=== PATIENT | male | born 1995 | race Asian ===

== ENCOUNTER 2024-09-26 21:57 | Emergency (ER) | payer BC ==
[~2024-09-26] VITALS: Ht 177.8 cm; Wt 77.1 kg
[2024-09-26] MEDS ORDERED: ACET-3102 PO (23:58)
[2024-09-26] MEDS ORDERED: NAPR-1009 PO (23:58)
[2024-09-26] MEDS ORDERED: LIDO1ADH71 TD (23:58)
[2024-09-26] MEDS ORDERED: DIAZ5TAB PO (23:58)
[2024-09-27 00:05] VITALS: BP 125/80; TEMP 98; O2SAT 99
== END 2024-09-27 00:06 | disposition home or self-care (01) ==
LOC: ER 22:01
DX: S39.012A Strain of muscle, fascia and tendon of lower back, initial encounter (principal); X58.XXXA Exposure to other specified factors, initial encounter; Y93.9 Activity, unspecified; Y92.9 Unspecified place or not applicable; Y99.8 Other external cause status
CPT/HCPCS: 72110-TC